=== PATIENT | female | born 1990 | race Caucasian/White ===

== ENCOUNTER 2016-12-04 23:30 | Emergency (ER) | payer OTHER | END 2016-12-05 01:40 | disposition home or self-care (01) | LOC: FER 23:30 | DX: S60.222A Contusion of left hand, initial encounter (principal); W22.8XXA Striking against or struck by other objects, initial encounter; Y92.009 Unspecified place in unspecified non-institutional (private) residence as the place of occurrence of the external cause | CPT/HCPCS: 73130; J1885 ==